=== PATIENT | male | born 1990 | race Caucasian/White ===

== ENCOUNTER 2019-01-10 18:03 | Emergency (ER) | payer SELFPAY ==
[~2019-01-10] VITALS: Ht 170.2 cm; Wt 86.0 kg
[~2019-01-10 18:03] MED LIST: IBUP-1542 PO
[2019-01-10 18:09] VITALS: Ht 170.2 cm; Wt 86.0 kg
[2019-01-10] MEDS ORDERED: IBUPROFEN 800 MG TAB PO ONE (20:00)
[2019-01-10 21:10] VITALS: BP 114/63; PULSE 89; RESP 19
== END 2019-01-10 21:15 | disposition home or self-care (01) ==
LOC: E/R 18:03
DX: M25.511 Pain in right shoulder (principal); R07.9 Chest pain, unspecified; M54.2 Cervicalgia; M54.5 Low back pain
CPT/HCPCS: 71045; 81003